=== PATIENT | female | born 1995 | race Caucasian/White ===

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

== ENCOUNTER 2017-01-26 11:25 | Emergency (ER) | payer OTHER ==
[~2017-01-26] VITALS: Ht 160 cm; Wt 53.8 kg
[2017-01-26 11:29] VITALS: Ht 160 cm; Wt 53.8 kg
[2017-01-26] MEDS ORDERED: ACETAMINOPHEN 325 MG TAB PO STA (11:51)
[2017-01-26] MEDS ORDERED: KETOROLAC TROMETHAMINE 30 MG/ML VIAL IV STA (12:14)
[2017-01-26] MEDS ORDERED: SODIUM CHLORIDE 0.9% 1000ML 1,000 ML IV ONE (12:14)
[2017-01-26] MEDS ORDERED: SODIUM CHLORIDE 0.9% 1000ML 1,000 ML IV STA (12:14)
[2017-01-26 12:40] LABS: BASO % 0.2 %; BASO ABS # 0.01 K/uL (0-0.2); COMPLETE YES; EOS % 0.5 %; HEMATOCRIT 38.2 % (37-47); LYMPH % 9.1 %; MEAN CORPUSCULAR HEMOGLOBIN 30.9 pg (25-34); MEAN CORPUSCULAR HGB CONC 35.1 g/dl (32-36); MEAN PLATELET VOLUME 9.3 fL (7.4-10.4); MONO % 6.2 %; PLATELET COUNT 217 K/uL (130-400); RED BLOOD COUNT 4.34 M/uL (4.2-5.4); WHITE BLOOD COUNT 6.58 K/uL (4.8-10.8)
[2017-01-26 12:43] LABS: PREG INTERNAL NEGATIVE QC NEG CLEAR BACKGROUND; PREG INTERNAL POSITIVE QC POS CONTROL LINE
--- NOTE | 2017-01-26 12:46 | EMERGENCY ROOM VISIT NOTE ---
History Report prepared by Charlotte: Kurt Cardona Under the Supervision of: Dr. Mani Abel M.D. First contact with patient: 11:52 Chief Complaint: FEVER Stated Complaint: FEVER, WHOLE BODY HURTS History of Present Illness The patient is a 21 year old female who presents to the Emergency Room with complaints of a fever that began this morning. Her temperature in triage was 37.6 C. The patient woke up this morning with body aches and she states that " it hurts everywhere." She recently had a sinus infection and a double ear infection and notes that she had just finished her Augmentin, 10 days BID, yesterday. She denies any ear pain or sinus pain at this time. She complains of a headache that makes it difficult for her to turn her head left or right. She notes that she has a history of migraines and that this headache feels like her typical migraine. The patient reports that she previously had a urinary tract infection with pyelonephritis. She states that she currently has burning with urination. The patient also states that it hurts to take deep breaths under her bilateral ribs. She states that she has back and abdominal pain. The patient denies any coughing, rhinorrhea, rash, and numbness. She also denies any chronic medical issues. The patient states that her vaccines are up to date but she has not gotten her flu shot this year. Source of History: patient Onset: This morning Position: other (Global) Symptom Intensity: 37.6 C Quality: other (Fever) Timing: waxes/wanes Associated Symptoms: + headache, + chest pain (bilateral ribs with breathing ), + abdominal pain, + back pain, + urinary symptoms (burning with urination), No cough, No numbness, No rash Review of Systems See HPI for pertinent positives & negatives. A total of 10 systems reviewed and were otherwise negative. Past Medical & Surgical Medical Problems: (1) Asthma (2) Polycystic ovarian syndrome (3) Recurrent urinary tract infection Surgical Problems: (1) History of adenoidectomy Old medical records were reviewed. Nurse's notes were reviewed and I agree with. Family History FH: heart disease Social History Smoking Status: Never Smoker Smokeless Tobacco Use: No Alcohol Use: occasionally Drug Use: none Marital Status: single Housing Status: lives with family Occupation Status: [employer] student Current/Historical Medications Scheduled Nitrofurantoin Monohyd Macrocr (Macrobid), 100 MG PO BID Allergies Coded Allergies: Nut Tree (Unverified Allergy, Unknown, UNKNOWN, 01/26/17) Physical Exam Vital Signs Date Time Temp Pulse Resp B/P (MAP) Pulse Ox O2 Delivery O2 Flow Rate FiO2 01/26/17 14:35 91 16 104/53 96 Room Air 01/26/17 14:35 37.1 01/26/17 13:16 111 16 112/56 97 Room Air 01/26/17 11:29 37.6 120 18 116/75 98 Room Air Physical Exam General: Mildly ill appearing nontoxic young female in no acute distress. HEENT: Normal cephalic atraumatic. Pupils are equal round and reactive to light. Extraocular movements are intact. Oropharynx is pink with moist mucous membranes. No swelling of the mouth lips or tongue. Neck: Supple with a midline trachea. No meningeal signs or stiffness, no JVD or bruits. No Stridor. Negative Kernig and Brudzinski's signs. Chest: Clear to auscultation bilaterally. No wheezes or rhonchi. No increased work of breathing. Heart: regular rate and rhythm. Abdomen: Soft nontender, nondistended without rebound guarding or rigidity. Extremities: No cyanosis clubbing or edema. No calf tenderness or assymetry Spine/Back. Non tender to palpation. No CVA tenderness Skin: Good turgor without rashes. Neurologic exam: Cranial nerves two through 12 are intact. Motor and sensation are intact and symmetrical throughout. Medical Decision & Procedures ER Provider Diagnostic Interpretation: Radiology results as stated below per my review and radiologist interpretation: CHEST ONE VIEW PORTABLE HISTORY: 21 years-old Female CHEST PAIN acute atypical chest pain COMPARISON: None available TECHNIQUE: Portable upright AP view of the chest FINDINGS: Cardiomediastinal and hilar silhouettes are within normal limits. No pneumothorax, pleural effusion, focal airspace consolidation or overt pulmonary edema. Upper abdominal structures and bones appear grossly unremarkable. IMPRESSION: No acute cardiopulmonary process. The above report was generated using voice recognition software. It may contain grammatical, syntax or spelling errors. Electronically signed by: Herman White M.D. 01/26/2017 12:58 PM Dictated Date/Time: 01/26/2017 12:57 PM Laboratory Results 01/26/17 11:40 Red Blood Count 4.34, Mean Corpuscular Volume 88.0, Mean Corpuscular Hemoglobin 30.9, Mean Corpuscular Hemoglobin Concent 35.1, Mean Platelet Volume 9.3, Neutrophils (%) (Auto) 84.0, Lymphocytes (%) (Auto) 9.1, Monocytes (%) (Auto) 6.2, Eosinophils (%) (Auto) 0.5, Basophils (%) (Auto) 0.2, Neutrophils # (Auto) 5.53, Lymphocytes # (Auto) 0.60, Monocytes # (Auto) 0.41, Eosinophils # (Auto) 0.03, Basophils # (Auto) 0.01 01/26/17 11:40 Test 01/26/17 11:40 01/26/17 11:42 01/26/17 13:15 White Blood Count 6.58 K/uL (4.8-10.8) Red Blood Count 4.34 M/uL (4.2-5.4) Hemoglobin 13.4 g/dL (12.0-16.0) Hematocrit 38.2 % (37-47) Mean Corpuscular Volume 88.0 fL (80-100) Mean Corpuscular Hemoglobin 30.9 pg (25-34) Mean Corpuscular Hemoglobin Concent 35.1 g/dl (32-36) Platelet Count 217 K/uL (130-400) Mean Platelet Volume 9.3 fL (7.4-10.4) Neutrophils (%) (Auto) 84.0 % Lymphocytes (%) (Auto) 9.1 % Monocytes (%) (Auto) 6.2 % Eosinophils (%) (Auto) 0.5 % Basophils (%) (Auto) 0.2 % Neutrophils # (Auto) 5.53 K/uL (1.4-6.5) Lymphocytes # (Auto) 0.60 K/uL (1.2-3.4) Monocytes # (Auto) 0.41 K/uL (0.11-0.59) Eosinophils # (Auto) 0.03 K/uL (0-0.5) Basophils # (Auto) 0.01 K/uL (0-0.2) RDW Standard Deviation 40.6 fL (36.4-46.3) RDW Coefficient of Variation 12.6 % (11.5-14.5) Immature Granulocyte % (Auto) 0.0 % Immature Granulocyte # (Auto) 0.00 K/uL (0.00-0.02) Anion Gap 6.0 mmol/L (3-11) Est Creatinine Clear Calc Drug Dose 77.1 ml/min Estimated GFR () 98.1 Estimated GFR (Non- 84.7 BUN/Creatinine Ratio 12.7 (10-20) Calcium Level 9.7 mg/dl (8.5-10.1) Total Bilirubin 0.5 mg/dl (0.2-1) Direct Bilirubin 0.1 mg/dl (0-0.2) Aspartate Amino Transf (AST/SGOT) 23 U/L (15-37) Alanine Aminotransferase (ALT/SGPT) 22 U/L (12-78) Alkaline Phosphatase 93 U/L (45-117) Total Protein 8.3 gm/dl (6.4-8.2) Albumin 4.6 gm/dl (3.4-5.0) Lipase 78 U/L (73-393) Human Chorionic Gonadotropin, Qual NEG (NEG) Monoscreen NEG (NEG) Urine Color YELLOW Urine Appearance CLOUDY (CLEAR) Urine pH 6.0 (4.5-7.5) Urine Specific [place] 1.024 (1.000-1.030) Urine Protein TRACE (NEG) Urine Glucose (UA) NEG (NEG) Urine Ketones 1+ (NEG) Urine Occult Blood 1+ (NEG) Urine Nitrite NEG (NEG) Urine Bilirubin NEG (NEG) Urine Urobilinogen NEG (NEG) Urine Leukocyte Esterase MODERATE (NEG) Urine WBC (Auto) 10-30 /hpf (0-5) Urine RBC (Auto) 5-10 /hpf (0-4) Urine Hyaline Casts (Auto) 1-5 /lpf (0-5) Urine Epithelial Cells (Auto) >30 /lpf (0-5) Urine Bacteria (Auto) 1+ (NEG) Urine Pathogenic Casts /lpf (0) Influenza Type A Antigen Neg for Influ A (NEG) Influenza Type B Antigen Neg for Influ B (NEG) Laboratory studies as stated above per my review. Medications Administered Medications (Trade) Dose Ordered Sig/Kadi Route Start Time Stop Time Status Last Admin Dose Admin Acetaminophen (Tylenol Tab) 650 mg NOW STAT PO 01/26/17 11:51 01/26/17 11:52 DC 10/7/17 11:58 650 MG Sodium Chloride 1,000 ml @ 999 mls/hr Q1H1M STAT IV 01/26/17 12:14 01/26/17 13:14 DC 01/26/17 12:14 999 MLS/HR Sodium Chloride 1,000 ml @ 200 mls/hr Q5H ONCE IV 01/26/17 12:14 01/26/17 17:13 01/26/17 12:14 200 MLS/HR Ketorolac Tromethamine (Toradol Inj) 30 mg NOW STAT IV 01/26/17 12:14 01/26/17 12:17 DC 01/26/17 12:38 30 MG ED Course 1151: Tylenol Tab 650 mg PO 1152: Past medical records reviewed. The patient was evaluated in room C9, and a complete history and physical examination were performed. 1214: Toradol Inj 30 mg IV, Sodium Chloride 1000 ml @ 200 mls/hr IV, Sodium Chloride 1000 ml @ 999 mls/hr IV. 1450: I reevaluated the patient at this time. Her urine is suboptimal. I will place her on antibiotics for a possible UTI. 1500: Ordered Macrobid 100 mg PO 1515: Upon reevaluation, the patient is resting. I discussed the results and treatment plan with her. She verbalized agreement of the treatment plan. The patient was discharged home. Medical Decision Differentials include, but are not limited to; viral illness, UTI, dehydration, pneumonia, meningitis, electrolyte or metabolic abnormality. This patient comes in as described above. She was placed in room C4. She is here for treatment and evaluations of fever. Started today. She has diffuse body aches. She also some mild pain in her ribs bilaterally in her right flank. She may have some mild dysuria. She has occasional cough. She did not have a flu shot. There are no known sick exposures. She had sinus disease and bronchitis and finished antibiotics recently the symptoms seemed to resolved. She looks well on exam is nontoxic and non-lethargic. She has nothing to suggest meningitis or encephalitis. She was given Tylenol by the nurse and IV access established was given Toradol 30 mg IV while she was here as well. She is feeling significantly better. She looks well and is nontoxic. She has no elevation of white count. Chest x-ray was clear. Monospot was negative. She' s had no acute electrolyte or metabolic abnormality. She has nothing to suggest acute liver or gallbladder pancreas disease. Her abdomen is benign. She has no significant flank tenderness. Her urine is suboptimal as she has greater than 30 epithelial cells but does have other findings that could be consistent with UTI. I will start her on Macrobid to cover this possibility. She was given Macrobid 100 mg by mouth here as well as prescription for 100 mg twice a day for 7 days she can use [id number] Tylenol/ibuprofen but do not exceed the [id number] recommended dosages. She should return if : increasing pain, worsening of symptoms, fever or chills, any problems or concerns. She is happy with plan discharged to home. Medication Reconcilliation Current Medication List: was personally reviewed by me Blood Pressure Screening Patient's blood pressure: Normal blood pressure Blood pressure disposition: Did not require urgent referral Impression Primary Impression: Urinary tract infection Additional Impression: Febrile illness Scribe Attestation The scribe's documentation has been prepared under my direction and personally reviewed by me in its entirety. I confirm that the note above accurately reflects all work, treatment, procedures, and medical decision making performed by me. Departure Information Dispostion Home / Self-Care Prescriptions Nitrofurantoin Monohyd Macrocr (Macrobid) 100 Mg Cap 100 MG PO BID, #14 CAP Prov: Mani Abel M.D. 01/26/17 Referrals No Doctor, Assigned (PCP) Forms HOME CARE DOCUMENTATION FORM, IMPORTANT VISIT INFORMATION Patient Instructions [facility] Problem Qualifiers
[2017-01-26 12:52] LABS: BUN/CREATININE RATIO 12.7 (10-20); CALCIUM 9.7 mg/dl (8.5-10.1); CREATININE 0.97 mg/dl (0.60-1.20); POTASSIUM 3.9 mmol/L (3.5-5.1)
--- NOTE | 2017-01-26 12:59 | DIAGNOSTIC IMAGING REPORT ---
CHEST ONE VIEW PORTABLE HISTORY: 21 years-old Female CHEST PAIN acute atypical chest pain COMPARISON: None available TECHNIQUE: Portable upright AP view of the chest FINDINGS: Cardiomediastinal and hilar silhouettes are within normal limits. No pneumothorax, pleural effusion, focal airspace consolidation or overt pulmonary edema. Upper abdominal structures and bones appear grossly unremarkable. IMPRESSION: No acute cardiopulmonary process. The above report was generated using voice recognition software. It may contain grammatical, syntax or spelling errors. Electronically signed by: Herman White M.D. 01/26/2017 12:58 PM Dictated Date/Time: 01/26/2017 12:57 PM
[2017-01-26 13:30] LABS: URINE APPEARANCE CLOUDY (CLEAR); URINE BILIRUBIN NEG (NEG); URINE COLOR YELLOW; URINE EPITHELIAL CELL AUTO >30 /lpf (0-5); URINE NITRITE NEG (NEG); URINE SPECIFIC GRAVITY 1.024 (1.000-1.030); UROBILINOGEN NEG (NEG)
[2017-01-26 13:33] LABS: MANUAL MICROSCOPIC REQUIRED? NO; REVIEW REQ? YES
[2017-01-26 14:35] VITALS: TEMP 37.1
[2017-01-26] MEDS ORDERED: NITR-5 PO (15:04)
[2017-01-26] MEDS ORDERED: NITROFURANTOIN MONOHYDRATE 100 MG CAP PO ONE (15:15)
[2017-01-26 15:50] VITALS: BP 110/75; PULSE 85; O2SAT 99
== END 2017-01-26 15:55 | disposition home or self-care (01) ==
LOC: C.EDB 11:26 → C.EDC 15:55
DX: N39.0 Urinary tract infection, site not specified (principal); R50.9 Fever, unspecified; J45.909 Unspecified asthma, uncomplicated; E28.2 Polycystic ovarian syndrome; Z87.440 Personal history of urinary (tract) infections

== ENCOUNTER 2017-05-25 21:52 | Emergency (ER) | payer OTHER ==
[~2017-05-25] VITALS: Ht 160 cm; Wt 53.2 kg
[~2017-05-25 21:52] MED LIST changes: +NITR-5 PO; -PHEN-876 PO; -SULF800T23 PO
[2017-05-25 21:54] VITALS: TEMP 37.8; Ht 160 cm; Wt 53.2 kg
--- NOTE | 2017-05-25 22:22 | EMERGENCY ROOM VISIT NOTE ---
History First contact with patient: 22:00 Chief Complaint: SORETHROAT Stated Complaint: FEVER,BODY ACHES History of Present Illness The patient is a 21 year old female who presents to the Emergency Room with complaints of sore throat that acutely worsened this morning. Prompted her to go to [facility] and was sent home with a zpack, told her monospot POC was negative. A/w hoarseness, weakness and fatigue which has been ongoing x 1 week. Finished tamiflu 2 weeks ago and initially improved after finishing, but then symptoms returned. Low grade fever at home 100. Denies vomiting, diarrhea, chest pain or SOB. Denies sick contacts. Review of Systems See HPI for pertinent positives and negatives. Past Medical/Surgical History Medical Problems: (1) Asthma (2) Polycystic ovarian syndrome (3) Recurrent urinary tract infection Surgical Problems: (1) History of adenoidectomy Family History FH: heart disease Social History Smoking Status: Never Smoker Alcohol Use: occasionally Drug Use: none Marital Status: single Housing Status: lives with family Occupation Status: [employer] student Current/Historical Medications Scheduled Amoxicillin & Pot Clavulanate (Amoxicillin/Clavulanate P), 1 TAB PO BID Prednisone (Prednisone Tab), 0 PO DAILY Scheduled PRN Ibuprofen (Advil), 200-600 MG PO Q4H PRN for Pain or Fever Physical Exam Vital Signs Date Time Temp Pulse Resp B/P (MAP) Pulse Ox O2 Delivery O2 Flow Rate FiO2 05/26/17 00:26 78 18 118/68 98 05/25/17 21:54 37.8 114 22 102/63 96 Room Air Physical Exam GENERAL: Awake, alert, well-appearing, in mild distress. Hoarse voice. HENT: Normocephalic, atraumatic. Oropharynx reveals white exudate on RT tonsil. EYES: Normal conjunctiva. Sclera non-icteric. NECK: Supple. +LAD in submandibular nodes. Exquisite tenderness to palpation of RT sternocleidomastoid muscle. RESPIRATORY: Clear to auscultation. CARDIAC: Regular rate, normal rhythm. Extremities warm and well perfused. Pulses equal. ABDOMEN: Soft, non-distended. No tenderness to palpation. No rebound or guarding. No masses. RECTAL: Deferred. MUSCULOSKELETAL: Chest examination reveals no tenderness. The back is symmetrical on inspection without obvious abnormality. There is no CVA tenderness to palpation. No joint edema. SKIN: No rash or jaundice noted. Medical Decision & Procedures Laboratory Results Test 05/25/17 22:55 05/25/17 22:59 Monoscreen NEG (NEG) Influenza Type A Antigen Neg for Influ A (NEG) Influenza Type B Antigen Neg for Influ B (NEG) Medications Administered Medications (Trade) Dose Ordered Sig/Kadi Route Start Time Stop Time Status Last Admin Dose Admin Acetaminophen (Tylenol Tab) 1,000 mg NOW STAT PO 05/25/17 22:23 05/25/17 22:26 DC 05/25/17 22:57 1,000 MG Ibuprofen (Motrin Tab) 600 mg NOW STAT PO 05/25/17 22:23 05/25/17 22:26 DC 05/25/17 22:58 600 MG Dexamethasone (Decadron Tab) 4 mg NOW ONCE PO 05/25/17 22:30 05/25/17 22:31 DC 05/25/17 22:58 4 MG Menthol (Nice Clark) 1 clark NOW STAT CLARK 05/25/17 22:23 05/25/17 22:26 DC 05/25/17 22:56 1 CLARK Amoxicillin/ Clavulanate Potassium (Augmentin Tab) 875 mg NOW ONCE PO 05/26/17 00:00 05/26/17 00:01 DC 05/26/17 00:00 875 MG Dexamethasone Sodium Phosphate (Dexamethasone Inj Pf) 6 mg ONE STAT PO 05/25/17 23:46 05/25/17 23:49 DC 05/25/17 23:46 6 MG ED Course Ordered 1g Tylenol PO, 600mg Motrin po, 4mg Dexamthasone, cepacol lozenges. Flu and monoscreen both negative. Symptoms improved with dexamethasone, tyl/motrin, and lozenge. Decision made to treat empirically for strep - additional 6mg of dexamethasone and 875 Augmentin ordered and given here in ED. Medical Decision The patient is a 21 year old female who presents to the Emergency Room with complaints of sore throat that acutely worsened this morning. Prompted her to go to [facility] and was sent home with a zpack, told her monospot POC was negative. A/w hoarseness, weakness and fatigue which has been ongoing x 1 week. Finished tamiflu 2 weeks ago and initially improved after finishing, but then symptoms returned. Low grade fever at home 100. Ddx: viral/bacterial pharyngitis, mononucleosis, lymphadenitis, peritonsillar abscess. Pt's symptoms much improved on dosing of dexamethasone and additional pain control and lozenge. Decision made to treat strep pharyngitis empirically, first dose of augmentin given here, and to continue steroids PO. DC azithromycin. Plan discussed with pt and pt verbalized agreement, answered all questions. Stable for discharge. Impression Primary Impression: Sore throat Additional Impression: Lymphadenitis, acute Departure Information Dispostion Home / Self-Care Condition GOOD Prescriptions Prednisone (Prednisone Tab) 20 Mg Tab 0 PO DAILY, #7 TAB 2 TABS DAILY FOR 3 DAYS. Prov: Sallie Lo M.D. 05/26/17 Amoxicillin & Pot Clavulanate (AMOXICILLIN/CLAVULANATE P) 1 Tab Tab 1 TAB PO BID for 7 Days, #14 TAB Prov: Sallie Lo M.D. 05/26/17 Referrals No Doctor, Assigned (PCP) Patient Instructions [facility] Additional Instructions Stop taking the Z pack (azithromycin) medication. Begin taking augmentin 875mg twice daily for a week, and finish as prescribed on the packaging. Begin taking Prednisone 40mg daily on the morning of May 27. (The dose of steroids you received here in the ED is enough for 48 hours. ) For pain control: - Acetaminophen(Tylenol) may be used for fever or pain. Use 1000mg every six hours as needed. Avoid using more than 4000mg in a 24 hour period. Resident Tracking Resident Involvement: Resident Care Provided Care Provided: Adult ED Problem Qualifiers
[2017-05-25] MEDS ORDERED: ACETAMINOPHEN 500 MG TAB PO STA (22:23)
[2017-05-25] MEDS ORDERED: IBUPROFEN 600 MG TAB PO STA (22:23)
[2017-05-25] MEDS ORDERED: COUGH DROP (SUGAR FREE) LOZ 24 LOZ/1 BOX LOZ STA (22:23)
[2017-05-25] MEDS ORDERED: COUGH DROP (SUGAR FREE) LOZ 24 LOZ/1 BOX LOZ PRN (22:30)
[2017-05-25] MEDS ORDERED: DEXAMETHASONE 4 MG TAB PO ONE (22:30)
[2017-05-25] MEDS ORDERED: IBUP-1050 PO (22:39)
--- NOTE | 2017-05-25 23:15 | EMERGENCY ROOM VISIT NOTE ---
History Report prepared by Charlotte: Venancio Higgins Under the Supervision of: Dr. Guille Garcia M.D. First contact with patient: 22:00 Chief Complaint: SORETHROAT Stated Complaint: FEVER,BODY ACHES History of Present Illness The patient is a 21 year old white female with a past medical history of asthma , adenoidectomy, and UTI who presents to the ED with a cc of a worsening sorethroat beginning this morning. She rates her discomfort as a 10/10 in severity. Positive neck pain, head pain, fatigue, weakness. The patient states that she had influenza two weeks ago and was taking Tamiflu. She reports that her symptoms resolved for a week until she woke up this morning. The patient states that she took Advil for her symptoms without any relief. She states that she went to [facility] to have lab work done. The patient states that her strep test was negative and she was given a Z Pack for her sinuses. Source of History: patient Onset: this morning Position: throat Symptom Intensity: 10/10 Quality: other (sore) Timing: worsening Modifying Factors (Relieving): other (Advil, Z Pack) Associated Symptoms: + headache, + neck pain, + fatigue, + weakness Review of Systems See HPI for pertinent positives and negatives. A total of ten systems were reviewed and were otherwise negative. Past Medical & Surgical Medical Problems: (1) Asthma (2) Polycystic ovarian syndrome (3) Recurrent urinary tract infection Surgical Problems: (1) History of adenoidectomy Family History FH: heart disease Social History Smoking Status: Never Smoker Alcohol Use: occasionally Drug Use: none Marital Status: single Housing Status: lives with family Occupation Status: [employer] Current/Historical Medications Scheduled Amoxicillin & Pot Clavulanate (Amoxicillin/Clavulanate P), 1 TAB PO BID Prednisone (Prednisone Tab), 0 PO DAILY Scheduled PRN Ibuprofen (Advil), 200-600 MG PO Q4H PRN for Pain or Fever Allergies Coded Allergies: Nut Tree (Verified Allergy, Unknown, UNKNOWN, 05/25/17) Physical Exam Vital Signs Date Time Temp Pulse Resp B/P (MAP) Pulse Ox O2 Delivery O2 Flow Rate FiO2 05/26/17 00:26 78 18 118/68 98 05/25/17 21:54 37.8 114 22 102/63 96 Room Air Physical Exam GENERAL: Awake, alert, well-appearing, NAD HENT: Normocephalic, atraumatic. Posterior pharynx with exudate. Bilateral tonsillar exudate white-rosalva in color. Tender lymphadenopathy to right anterior neck. No uvular deviation. No stridor. Hoarse voice noted. EYES: Normal conjunctiva. Sclera non-icteric. NECK: Supple. No nuchal rigidity. FROM. RESPIRATORY: CTAB, no rhonchi, wheezing, crackles CARDIAC: RRR, no MRG ABDOMEN: Soft, NTND, BS+ MSK: No chest wall TTP, no LE edema NEURO: GCS 15, CN 2-12 intact, moves all 4s on command SKIN: No rash or jaundice noted. Medical Decision & Procedures Laboratory Results Test 05/25/17 22:55 05/25/17 22:59 Monoscreen NEG (NEG) Influenza Type A Antigen Neg for Influ A (NEG) Influenza Type B Antigen Neg for Influ B (NEG) Laboratory results reviewed by me Medications Administered Medications (Trade) Dose Ordered Sig/Kadi Route Start Time Stop Time Status Last Admin Dose Admin Acetaminophen (Tylenol Tab) 1,000 mg NOW STAT PO 05/25/17 22:23 05/25/17 22:26 DC 05/25/17 22:57 1,000 MG Ibuprofen (Motrin Tab) 600 mg NOW STAT PO 05/25/17 22:23 05/25/17 22:26 DC 05/25/17 22:58 600 MG Dexamethasone (Decadron Tab) 4 mg NOW ONCE PO 05/25/17 22:30 05/25/17 22:31 DC 05/25/17 22:58 4 MG Menthol (Nice Clark) 1 clark NOW STAT CLARK 05/25/17 22:23 05/25/17 22:26 DC 05/25/17 22:56 1 CLARK Amoxicillin/ Clavulanate Potassium (Augmentin Tab) 875 mg NOW ONCE PO 05/26/17 00:00 05/26/17 00:01 DC 05/26/17 00:00 875 MG Dexamethasone Sodium Phosphate (Dexamethasone Inj Pf) 6 mg ONE STAT PO 05/25/17 23:46 05/25/17 23:49 DC 05/25/17 23:46 6 MG ED Course 2324: The patient was evaluated in room C06. A complete history and physical exam was performed. 2358: I reevaluated the patient. Discussed results and discharge instructions: She verbalized understanding and agreement. The patient is ready for discharge. Medical Decision Triage Nursing notes reviewed. The patient is a 21 year old white female with a past medical history of asthma , adenoidectomy, and UTI who presents to the ED with a cc of a worsening sorethroat beginning this morning. The patient's presentation and history were concerning for etiologies such as viral syndrome, tonsillitis, streptococcal pharyngitis, mononucleosis, peritonsillar abscess, retropharyngeal abscess, otitis, pneumonia, influenza, as well as others were entertained. Patient was seen and evaluated the bedside after being seen and evaluated by the resident physician. Patient had been complaining some worsening shortness of that it becomes morning. Patient did have a recent bout of influenza which she was treated for approximately 2 weeks prior. Patient was seen at an urgent care earlier today was given a Z-Robert. Patient was referred here for further evaluation and treatment. Patient did have some mild right-sided neck tenderness to palpation. Upon exam of the posterior pharynx she did have tonsillar exudates bilaterally. Given that she had a negative strep test I believe with her fever, lack of cough, tonsillar exudates this is sufficient to treat for strep pharyngitis. Patient was given a first course of Augmentin in addition to some steroids and other medications for symptom control. Upon reassessment the patient was feeling improved. Patient was negative for flu and mono. Patient was advised to avoid alcohol and tobacco. She was told to hydrate liberally. The patient's neck tenderness is related to likely lymphadenitis. The patient does have full range of motion I do not believe that she has any meningismus nor a deep space neck infection. Furthermore, the patient has no stridor. Patient was deemed suitable for outpatient follow-up and treatment at this time. Patient was given strict follow-up, discharge, and return precautions. All questions were answered. Patient was deemed suitable for outpatient follow-up at this time. Patient agreed with the plan of care and was safely discharged home. The chart was completed utilizing [email or web address] voice recognition software. Grammatical errors, random word insertions, pronoun errors, and incomplete sentences are an occasional consequence of this system due to software limitations, ambient noise, and hardware issues. Any formal questions or concerns about the content, text, or information contained within the body of this dictation should be directly addressed to the physician for clarification. Medication Reconcilliation Current Medication List: was personally reviewed by me Blood Pressure Screening Patient's blood pressure: Normal blood pressure Impression Primary Impression: Strep pharyngitis Additional Impressions: Laryngitis Sore throat Scribe Attestation The scribe's documentation has been prepared under my direction and personally reviewed by me in its entirety. I confirm that the note above accurately reflects all work, treatment, procedures, and medical decision making performed by me. Departure Information Dispostion Home / Self-Care Prescriptions Prednisone (Prednisone Tab) 20 Mg Tab 0 PO DAILY, #7 TAB 2 TABS DAILY FOR 3 DAYS. Prov: Sallie Lo M.D. 05/26/17 Amoxicillin & Pot Clavulanate (AMOXICILLIN/CLAVULANATE P) 1 Tab Tab 1 TAB PO BID for 7 Days, #14 TAB Prov: Sallie Lo M.D. 05/26/17 Referrals No Doctor, Assigned (PCP) Patient Instructions [facility] Additional Instructions Stop taking the Z pack (azithromycin) medication. Begin taking augmentin 875mg twice daily for a week, and finish as prescribed on the packaging. Begin taking Prednisone 40mg daily on the morning of May 27. (The dose of steroids you received here in the ED is enough for 48 hours. ) For pain control: - Acetaminophen(Tylenol) may be used for fever or pain. Use 1000mg every six hours as needed. Avoid using more than 4000mg in a 24 hour period. Problem Qualifiers
[2017-05-25 23:38] LABS: INFLUENZA B ANTIGEN Neg for Influ B (NEG)
[2017-05-25] MEDS ORDERED: DEXAMETHASONE **PF** INJ 10 MG/ML VIAL PO STA (23:46)
[2017-05-26] MEDS ORDERED: AMOXICILLIN/CLAVULANATE TAB 875 MG TAB PO ONE
[2017-05-26] MEDS ORDERED: PRED20TA2 PO (00:05)
[2017-05-26] MEDS ORDERED: AMOX1TAB42 PO (00:05)
[2017-05-26 00:26] VITALS: BP 118/68; PULSE 78; O2SAT 98
== END 2017-05-26 00:28 | disposition home or self-care (01) ==
LOC: C.EDB 21:53 → C.EDC 05-26 00:28
DX: J02.9 Acute pharyngitis, unspecified (principal); L04.9 Acute lymphadenitis, unspecified; J45.909 Unspecified asthma, uncomplicated; E28.2 Polycystic ovarian syndrome; Z87.440 Personal history of urinary (tract) infections